=== PATIENT | female | born 1960 | race Caucasian/White ===

== ENCOUNTER 2018-05-11 10:59 | Day surgery (SDC) | payer BC ==
[~2018-05-11 10:59] MED LIST: LIDOCAINE 2% INJ 100 MG/5 ML SDV (FOR ANES.) As Ordered; PROPOFOL 200 MG/20 ML VIAL As Ordered
[2018-05-11] MEDS: NS 1,000 ML IV (11:51)
== END 2018-05-11 14:28 | disposition home or self-care (01) ==
LOC: M OPP 14:28
DX: R19.5 Other fecal abnormalities (principal); R19.4 Change in bowel habit; D12.5 Benign neoplasm of sigmoid colon; K64.8 Other hemorrhoids; Q43.8 Other specified congenital malformations of intestine; D80.2 Selective deficiency of immunoglobulin A [IgA]; M81.0 Age-related osteoporosis without current pathological fracture; F41.9 Anxiety disorder, unspecified; G43.909 Migraine, unspecified, not intractable, without status migrainosus; M25.50 Pain in unspecified joint; Z85.41 Personal history of malignant neoplasm of cervix uteri; Z88.5 Allergy status to narcotic agent; Z88.8 Allergy status to other drugs, medicaments and biological substances; Z88.0 Allergy status to penicillin; Z79.82 Long term (current) use of aspirin; Z79.899 Other long term (current) drug therapy; Z80.41 Family history of malignant neoplasm of ovary; Z80.8 Family history of malignant neoplasm of other organs or systems
CPT/HCPCS: 45385

== ENCOUNTER → 2020-04-22 | Outpatient (REF) | payer BC ==
[~2020-04-22] MED LIST changes: +ASPI81TA26 PO; +CELE10TA PO; +CLAR10CA3 PO; +FOSA70TA PO; -LIDOCAINE 2% INJ 100 MG/5 ML SDV (FOR ANES.) As Ordered; -PROPOFOL 200 MG/20 ML VIAL As Ordered
== END ==
LOC: M LAB REF 18:51
PROVIDERS: ATTEND Dermatology
DX: L82.1 Other seborrheic keratosis (principal); L90.5 Scar conditions and fibrosis of skin; C44.529 Squamous cell carcinoma of skin of other part of trunk

== ENCOUNTER → 2022-01-03 | Outpatient (CLI) | payer BC, SELFPAY | LOC: M LABSMTC 11:20 | PROVIDERS: ATTEND Anesthesiology | DX: Z11.52 Encounter for screening for COVID-19 (principal); Z20.822 Contact with and (suspected) exposure to COVID-19 ==

== ENCOUNTER 2022-01-08 11:58 | Day surgery (SDC) | payer BC ==
[~2022-01-08] VITALS: Ht 162.6 cm; Wt 57.2 kg
[~2022-01-08 11:58] MED LIST changes: +CITA20TA6; +CYCL-707; +DRIS50003 PO; +ESOM40CA35; +FAMO40TA3; +NS 1,000 ML IV ONE; +OMEP40CA5; +ZINC1TAB2 PO
[2022-01-08] MEDS ORDERED: ESOM40CA35 PO (12:15)
[2022-01-08] MEDS ORDERED: propofoL 200 MG/20 ML VIAL As Ordered ONE (12:25)
[2022-01-08] MEDS ORDERED: LIDOCAINE 2% 100MG/5ML SDV (FOR ANES.) As Ordered ONE (12:25)
[2022-01-08] MEDS ORDERED: fentaNYL 100 MCG/2 ML INJECTION As Ordered ONE (12:26)
[2022-01-08 13:25] VITALS: BP 120/68
== END 2022-01-08 13:40 | disposition home or self-care (01) ==
LOC: M OPP 11:58
PROVIDERS: ATTEND Internal Medicine Gastroenterology
DX: F45.8 Other somatoform disorders (principal); R05.3 Chronic cough; R12 Heartburn; Z79.899 Other long term (current) drug therapy; Z88.0 Allergy status to penicillin; Z88.5 Allergy status to narcotic agent; Z88.8 Allergy status to other drugs, medicaments and biological substances
CPT/HCPCS: 43235; J3010

== ENCOUNTER → 2022-02-19 | Outpatient (CLI) | payer BC ==
[~2022-02-19] MED LIST changes: -CITA20TA6; +CITA20TA6 PO; -CYCL-707; +CYCL-707 PO; +ESOM0.1C PO; +ESOM40CA35 PO; +EXCETAB32 PO; +FAMO20TA PO; +MIRA3350 PO; -NS 1,000 ML IV ONE; +VITA100093 PO; +ZINC11TA PO
== END ==
LOC: M EKG 13:36
PROVIDERS: ATTEND Anesthesiology
DX: Z01.818 Encounter for other preprocedural examination (principal); K58.9 Irritable bowel syndrome, unspecified; K21.9 Gastro-esophageal reflux disease without esophagitis; F41.9 Anxiety disorder, unspecified

== ENCOUNTER → 2022-02-24 | Outpatient (CLI) | payer BC | LOC: M LABSMTC 10:58 | PROVIDERS: ATTEND Anesthesiology | DX: Z01.812 Encounter for preprocedural laboratory examination (principal); Z20.822 Contact with and (suspected) exposure to COVID-19 ==

== ENCOUNTER 2022-03-01 09:14 | Day surgery (SDC) | payer BC ==
[~2022-03-01] VITALS: Ht 162.6 cm; Wt 57.1 kg
[2022-03-01] MEDS ORDERED: LR 1,000 ML IV SCH ×3 (09:50→13:15)
[2022-03-01] MEDS ORDERED: MIDAZOLAM INJ 2MG/2ML VIAL (J2250 PER 1MG) As Ordered ONE (11:09)
[2022-03-01] MEDS ORDERED: LIDOCAINE 2% 100MG/5ML SDV (FOR ANES.) As Ordered ONE (11:09)
[2022-03-01] MEDS ORDERED: ROCURONIUM BROMIDE 50 MG/5 ML VIAL As Ordered ONE (11:09)
[2022-03-01] MEDS ORDERED: fentaNYL 100 MCG/2 ML INJECTION As Ordered ONE (11:09)
[2022-03-01] MEDS ORDERED: propofoL 200 MG/20 ML VIAL As Ordered ONE (11:09)
[2022-03-01] MEDS ORDERED: OXYMETAZOLINE 0.05% NASAL SPRAY (AFRIN) As Ordered ONE (11:59)
[2022-03-01] MEDS ORDERED: ePHEDrine SULFATE 25 MG/5 ML(5MG/ML) SYRINGE As Ordered ONE (12:29)
[2022-03-01] MEDS ORDERED: SUGAMMADEX SODIUM 500 MG/5 ML VIAL (BRIDION) As Ordered ONE (12:35)
[2022-03-01] MEDS ORDERED: fentaNYL 100 MCG/2 ML INJECTION IV PRN (12:50)
[2022-03-01] MEDS ORDERED: ONDANSETRON 4MG 2ML VIAL IV PRN ×2 (12:50→13:15)
[2022-03-01] MEDS ORDERED: oxyCODONE 5MG TAB PO PRN (12:50)
[2022-03-01] MEDS ORDERED: NALOXONE INJ 0.4MG/1ML VIAL (J2310 PER 1MG) As Ordered ONE (12:52)
[2022-03-01] MEDS ORDERED: ANEXSIA, NORCO 7.5MG/325MG TABLET(HYDROCODONE/APAP) PO PRN (13:15)
[2022-03-01 14:10] VITALS: BP 137/70
== END 2022-03-01 14:35 | disposition home or self-care (01) ==
LOC: M SDC 09:14
PROVIDERS: ATTEND Otolaryngology
DX: J38.3 Other diseases of vocal cords (principal); K58.1 Irritable bowel syndrome with constipation; D80.2 Selective deficiency of immunoglobulin A [IgA]; J45.998 Other asthma; Z85.41 Personal history of malignant neoplasm of cervix uteri; F41.9 Anxiety disorder, unspecified; K21.9 Gastro-esophageal reflux disease without esophagitis; G43.909 Migraine, unspecified, not intractable, without status migrainosus; Z79.899 Other long term (current) drug therapy; Z88.5 Allergy status to narcotic agent; Z88.8 Allergy status to other drugs, medicaments and biological substances; Z88.0 Allergy status to penicillin
CPT/HCPCS: 31545; 88305; 88313; J2250; J2310; J3010

== ENCOUNTER 2022-04-26 10:47 | Day surgery (SDC) | payer BC ==
[~2022-04-26] VITALS: Ht 162.6 cm; Wt 56.7 kg
[~2022-04-26 10:47] MED LIST changes: +ALEN70TA87 PO; -FOSA70TA PO; +OMEGCAP9 PO
[2022-04-26] MEDS ORDERED: fentaNYL 100 MCG/2 ML INJECTION As Ordered ONE (12:22)
[2022-04-26] MEDS ORDERED: MIDAZOLAM INJ 2MG/2ML VIAL (J2250 PER 1MG) As Ordered ONE (12:22)
[2022-04-26] MEDS ORDERED: ROCURONIUM BROMIDE 50 MG/5 ML VIAL As Ordered ONE (12:24)
[2022-04-26] MEDS ORDERED: LIDOCAINE 2% 100MG/5ML SDV (FOR ANES.) As Ordered ONE (12:25)
[2022-04-26] MEDS ORDERED: dexameTHASONE 4 MG/ML 1ML VIAL (J1100 PER 1MG) As Ordered ONE (12:26)
[2022-04-26] MEDS ORDERED: propofoL 200 MG/20 ML VIAL As Ordered ONE (12:26)
[2022-04-26] MEDS ORDERED: OXYMETAZOLINE 0.05% NASAL SPRAY (AFRIN) As Ordered ONE (13:52)
[2022-04-26] MEDS ORDERED: ONDANSETRON 4MG 2ML VIAL As Ordered ONE (14:17)
[2022-04-26] MEDS ORDERED: ACETAMINOPHEN 1000MG 100ML IV BTL (OFIRMEV) (J0131 PER 10MG) As Ordered ONE (14:18)
[2022-04-26] MEDS ORDERED: SUGAMMADEX SODIUM 500 MG/5 ML VIAL (BRIDION) As Ordered ONE (14:22)
[2022-04-26] MEDS ORDERED: SILVER NITRATE APPLICATOR (1 = QTY 10) As Ordered ONE (14:22)
[2022-04-26] MEDS ORDERED: ONDANSETRON 4MG 2ML VIAL IV PRN (14:40)
[2022-04-26] MEDS ORDERED: LR 1,000 ML IV SCH (14:40)
[2022-04-26] MEDS ORDERED: fentaNYL 100 MCG/2 ML INJECTION IV PRN (14:40)
[2022-04-26 16:00] VITALS: BP 152/77
== END 2022-04-26 16:10 | disposition home or self-care (01) ==
LOC: M SDC 10:47
PROVIDERS: ATTEND Otolaryngology
DX: J38.1 Polyp of vocal cord and larynx (principal); K58.1 Irritable bowel syndrome with constipation; D50.9 Iron deficiency anemia, unspecified; F41.9 Anxiety disorder, unspecified; Z79.899 Other long term (current) drug therapy; Z85.41 Personal history of malignant neoplasm of cervix uteri; Z88.0 Allergy status to penicillin; Z88.8 Allergy status to other drugs, medicaments and biological substances; Z88.5 Allergy status to narcotic agent; M81.0 Age-related osteoporosis without current pathological fracture; K21.9 Gastro-esophageal reflux disease without esophagitis
CPT/HCPCS: 31541; 88305; J0131; J1100; J2250; J2405; J3010

== ENCOUNTER 2022-08-27 09:17 | Day surgery (SDC) | payer BC ==
[~2022-08-27] VITALS: Ht 162.6 cm; Wt 53.7 kg
[~2022-08-27 09:17] MED LIST changes: +LINZ145C PO; +NS 1,000 ML IV ONE; +PANT40TA29 PO
[2022-08-27] MEDS ORDERED: propofoL 200 MG/20 ML VIAL As Ordered ONE ×2 (10:21→10:40)
[2022-08-27] MEDS ORDERED: LIDOCAINE 2% 100MG/5ML SDV (FOR ANES.) As Ordered ONE (10:21)
[2022-08-27] MEDS ORDERED: GLYCOPYRROLATE INJ 0.2 MG/ML 2 ML VIAL As Ordered ONE (10:21)
[2022-08-27 11:30] VITALS: BP 131/75
== END 2022-08-27 12:32 | disposition home or self-care (01) ==
LOC: M OPP 09:17
PROVIDERS: ATTEND Internal Medicine Gastroenterology
DX: Z12.11 Encounter for screening for malignant neoplasm of colon (principal); Z86.010 Personal history of colon polyps; Q43.8 Other specified congenital malformations of intestine; K63.5 Polyp of colon; Z79.1 Long term (current) use of non-steroidal anti-inflammatories (NSAID); Z79.899 Other long term (current) drug therapy; Z88.0 Allergy status to penicillin; Z88.5 Allergy status to narcotic agent; Z88.8 Allergy status to other drugs, medicaments and biological substances; G43.909 Migraine, unspecified, not intractable, without status migrainosus; D80.2 Selective deficiency of immunoglobulin A [IgA]; J45.909 Unspecified asthma, uncomplicated; Z83.79 Family history of other diseases of the digestive system; Z80.41 Family history of malignant neoplasm of ovary; Z85.41 Personal history of malignant neoplasm of cervix uteri

== ENCOUNTER 2022-11-11 11:24 | Day surgery (SDC) | payer BC ==
[~2022-11-11] VITALS: Ht 162.6 cm; Wt 53.5 kg
[~2022-11-11 11:24] MED LIST changes: -NS 1,000 ML IV ONE; +ZINC50TA17 PO
[2022-11-11] MEDS ORDERED: LR 1,000 ML IV SCH ×2 (11:55→15:00)
[2022-11-11] MEDS ORDERED: MIDAZOLAM INJ 2MG/2ML VIAL As Ordered ONE (12:20)
[2022-11-11] MEDS ORDERED: SUGAMMADEX SODIUM 500 MG/5 ML VIAL (BRIDION) As Ordered ONE (12:20)
[2022-11-11] MEDS ORDERED: ROCURONIUM BROMIDE 50MG/5ML VIAL As Ordered ONE (12:20)
[2022-11-11] MEDS ORDERED: fentaNYL 100 MCG/2 ML INJECTION As Ordered ONE (12:20)
[2022-11-11] MEDS ORDERED: LIDOCAINE 2% 100MG/5ML SDV (FOR ANES.) As Ordered ONE (12:20)
[2022-11-11] MEDS ORDERED: ONDANSETRON 4MG 2ML VIAL As Ordered ONE (12:20)
[2022-11-11] MEDS ORDERED: propofoL 200 MG/20 ML VIAL As Ordered ONE (12:20)
[2022-11-11] MEDS ORDERED: OXYMETAZOLINE 0.05% NASAL SPRAY (AFRIN) As Ordered ONE (13:14)
[2022-11-11] MEDS ORDERED: ONDANSETRON 4MG 2ML VIAL IV PRN (14:10)
[2022-11-11] MEDS ORDERED: fentaNYL 100 MCG/2 ML INJECTION IV PRN (14:10)
[2022-11-11] MEDS ORDERED: MORPHINE 2 MG/ML 1ML VIAL IV PRN (14:10)
[2022-11-11] MEDS ORDERED: oxyCODONE 5MG TAB PO PRN (14:10)
[2022-11-11 15:31] VITALS: BP 161/82
== END 2022-11-11 15:38 | disposition home or self-care (01) ==
LOC: M SDC 11:24
PROVIDERS: ATTEND Otolaryngology
DX: J38.3 Other diseases of vocal cords (principal); E04.1 Nontoxic single thyroid nodule; G43.909 Migraine, unspecified, not intractable, without status migrainosus; Z79.899 Other long term (current) drug therapy; F41.9 Anxiety disorder, unspecified; Z88.8 Allergy status to other drugs, medicaments and biological substances; Z88.0 Allergy status to penicillin; K58.8 Other irritable bowel syndrome; J45.909 Unspecified asthma, uncomplicated; Z85.41 Personal history of malignant neoplasm of cervix uteri
CPT/HCPCS: 31541; 88305; J1100; J2250; J2405; J3010